=== PATIENT | male | born 1940 | race Caucasian/White ===

== ENCOUNTER 2016-11-20 08:03 | Outpatient (CLI) | payer MEDICARE, BC ==
[~2016-11-20] VITALS: Ht 180.3 cm; Wt 81.8 kg
--- NOTE | ~2016-11-20 | HEMODYNAMI ---
PATIENT:OLIVER BOSTON MEDICAL RECORD: [id number] : 36 LOCATION:[facility] ADMISSION DATE: 11/20/16 Generatedon:11/20/201611:34 Patient name: OLIVER BOSTON Patient #: [id number] SSN: : 1940 Date of study: 11/20/2016 Page: Of Hemodynamic Procedure Report Patient Data Patient Demographics Procedure consent was obtained First Name: OLIVER Gender: Male Last Name: DARVIN : 1940 Middle Initial: D Age: 76 year(s) Patient #: [id number] Race: Additional ID: [id number] Contact details Address: [address] [place] [address] State: [place] City: [place] Zip code: [address] Past Medical History Performed procedures and imaging results Date Procedure Procedure Results Comments 11/13/2016 Stress testing Positive->Intermediate inferior with SPECT MPI risk Allergies Allergen Reaction Date Comments Reported Other allergy 11/20/2016 Plavix, Effient. Admission Admission Data Admission Date: 11/20/2016 Admission Time: 8:03 Height (in.): 71 BSA: 2.02 (m2) Height (cm.): 180.34 BMI: 25.15 (kg/m2) Weight (lbs.): 180.36 Weight (kg.): 81.81 Lab Results Lab Result Date: 11/20/2016 Lab Result Time: 9:23 Biochemistry Name Units Result Min Max BUN mg/dl 18 --(---*)-- 7 18 Creatinine mg/dl 1.1 --(--*-)-- 0.6 1.3 CBC Name Units Result Min Max Hematocrit % 42.8 --(*---)-- 42 54 Hemoglobin g/dl 14.4 --(*---)-- 13.5 17.5 Procedure Procedure Types Cath Procedure Diagnostic Procedure LHC LHC w/Coronaries PCI Procedure PTCA Initial Miscellaneous Procedures Moderate Sedation up to 30 minutes Procedure Description Procedure Date Procedure Date: 11/20/2016 Procedure Start Time: 11:16 Procedure End Time: 11:31 Procedure Staff Name Function Donell Davila MD Performing Physician Kirstie Hoyos RT Scrub Javier Davies RN Nurse Alexis Burton RT Monitor Procedure Data Cath Procedure Fluoroscopy Diagnostic fluoroscopy Total fluoroscopy Time: 4.8 time: 4.8 min min Diagnostic fluoroscopy Total fluoroscopy dose: dose: 354.18 mGy 354.18 mGy Contrast Material Contrast Material Type Amount (ml) Isovue 300 92 Entry Location Entry Primary Successful Side Size Upsize Upsize Entry Closure Succes sful Closure Location (Fr) 1 (Fr) 2 (Fr) Remarks Device Remarks Femoral Right 5 Fr 6 Fr Exoseal artery Short Estimated blood loss: 10 ml Diagnostic catheters Device Type Used For End Catheter Placement Cordis 5Fr Pigtail Procedure Catheter (MP) Cordis 5Fr JL 4.0 Procedure Catheter (MP) Cordis 5Fr 3DRC Catheter Procedure (MP) Procedure Complications No complications Procedure Medications Medication Administration Route Dosage Oxygen NC 2 l/min Heparin Flush Bag added to field 2 bags (1000units/500ml NS) 0.9% NaCl I.V. 100 ml/hr Fentanyl I.V. 50 mcg Versed 1 mg Fentanyl I.V. 50 mcg Versed 1 mg Fentanyl I.V. 50 mcg Fentanyl I.V. 50 mcg Heparin Bolus I.V. 4000 units Integrilin (Bolus I.V. 7.3 ml 2mg/ml) Brilinta P.O. 180 mg Hemodynamics Rest BSA: 2.02 (m2) HGB: 14.4 (g/dl) O2 Consumption: Estimated: 244.75 (ml/min) O2 Co nsumption indexed: Estimated:121.16 (ml/min/m) Heart Rate: 88 (bpm) Snapshots Pre Cath Intra NCS Post Cath Vital Signs Time Heart Resp SPO2 NIBP (mmHg) Rhythm Pain Sedation Rate (ipm) (%) Status Level (bpm) 10:58:42 82 19 99 186/95(131) NSR 0 (11) 10(A) , No pain 11:03:12 74 17 100 173/85(137) NSR 0 (11) 10(A) , No pain 11:07:29 69 19 100 151/79(115) NSR 0 (11) 10(A) , No pain 11:11:53 70 18 99 141/79(102) NSR 0 (11) 9(A) , No pain 11:16:13 73 19 98 137/71(101) NSR 0 (11) 9(A) , No pain 11:20:33 64 17 97 141/65(102) NSR 0 (11) 9(A) , No pain 11:24:51 73 17 98 136/64(103) NSR 0 (11) 9(A) , No pain 11:29:07 71 17 99 140/77(115) NSR 0 (11) 9(A) , No pain 11:32:40 65 17 99 156/83(122) NSR 0 (11) 9(A) , No pain Medications Time Medication Route Dose Verified Delivered Reason Notes Effectiveness by by 11:01:47 Oxygen NC 2 Javier Javier Per physician l/min Samson Davies RN RN 11:01:56 Heparin Flush added 2 Javier Javier used for Bag to bags Samson Davies RN procedure (1000units/500ml field RN NS) 11:02:11 0.9% NaCl I.V. 100 Javier Javier Per physician ml/hr Samson Davies RN RN 11:07:47 Fentanyl I.V. 50 Javier Javier for sedation mcg Samson Davies RN RN 11:08:09 Versed 1 mg Javier Javier for sedation Samson Davies RN RN 11:12:11 Fentanyl I.V. 50 Javier Javier for sedation mcg Samson Davies RN RN 11:12:17 Versed 1 mg Javier Javier for sedation Samson Davies RN RN 11:16:15 Fentanyl I.V. 50 Javier Javier for sedation mcg Samson Davies RN RN 11:21:52 Fentanyl I.V. 50 Javier Javier for sedation mcg Samson Davies RN RN 11:22:01 Heparin Bolus I.V. 4000 Javier Javier for units Samson Davies RN anticoagulation RN 11:23:26 Integrilin I.V. 7.3 Javier Javier for wasted (Bolus 2mg/ml) ml Samson Davies RN antiplatelet 2.7mL of RN therapy integrilin bolus 11:30:59 Brilinta P.O. 180 Javier Javier for mg Samson Davies RN antiplatelet RN therapy Procedure Log Time Note 10:39:51 Diagnostic Cath Status : Elective 10:40:08 Javier Davies RN sent for patient. Start room use. 10:41:49 Time tracking: Regular hours 10:41:53 Plan of Care:Hemodynamics will remain stable., Cardiac rhythm will remain stable., Comfort level will be maintained., Respiratory function will remain adequate., Patient/ family verbilizes understanding of procedure., Procedure tolerated without complication., Recovers from procedure without complications.. 10:52:37 Patient received from Pre/Post Procedure Room to CCL 3 Alert and oriented. Tansferred to table in Supine position. 10:52:38 Warm blankets applied, and emilia hugger turned on for patient comfort. 10:52:38 Correct patient and procedure confirmed by team. 10:52:40 Signed procedure consent form obtained from patient. 10:52:42 ECG and BP/O2 sat monitors applied to patient. 10:52:56 H&P Date Dictated: 11/04/2016 Within 30 days and on chart., H&P Addendum completed by physician on day of procedure. (MUST COMPLETE FOR ALL OUTPATIENTS). 10:52:58 Pre-procedure instructions explained to patient. 10:52:58 Pre-op teaching completed and patient verbalized understanding. 10:52:59 Family in waiting room. 10:53:01 Patient NPO since Midnight. 10:57:25 Vital chart was started 11:01:47 Oxygen 2 l/min NC was given by Javier Davies RN; Per physician; 11:01:54 Patient allergic to Other allergyPlavix, Effient. 11:01:56 Heparin Flush Bag (1000units/500ml NS) 2 bags added to field was given by Javier Davies RN; used for procedure; 11:01:56 Is the patient allergic to Iodine/contrast media? No. 11:01:57 Is patient on blood thinner?No 11:01:58 Patient diabetic? No. 11:02:01 Previous problem with sedation/anesthesia? No ? 11:02:02 Snore? Yes 11:02:03 Sleep apnea? No 11:02:03 Deviated septum? No 11:02:04 Opens mouth fully? Yes 11:02:05 Sticks out tongue? Yes 11:02:09 Airway obstruction? Yes Asthma 11:02:11 0.9% NaCl 100 ml/hr I.V. was given by Javier Davies RN; Per physician; 11:02:12 Dentures? Yes In tight 11:02:16 Pre procedure: right dorsailis pedis pulse 2+ Normal; easily identifiable; not easily obliterated 11:02:18 Patient pain scale 0/10 ?. 11:02:29 IV patent on arrival in left antecubital with 0.9% NaCl at [facility]. 11:03:54 Lab Result : Creatinine 1.1 mg/dl 11::54 Lab Result : BUN 18 mg/dl 11::54 Lab Result : Hemoglobin 14.4 g/dl 11::54 Lab Result : Hematocrit 42.8 % 11::56 Lab results completed and on chart. 11:03:59 Right groin area was prepped with chlora-prep and draped in sterile fashion 11:04:00 Alarms reviewed by R. N. 11:04:00 Sharps counted by scrub and verified by R.N. 11:04:03 Use device set Femoral Dx 11:04:04 Tegaderm 4 x 4 opened to sterile field. 11:04:08 Acist Manifold opened to sterile field. 11:04:11 Acist Hand Control opened to sterile field. 11:04:11 Diagnostic Infinity 5Fr Multipack catheter opened to sterile field. 11:04:12 Acist Syringe opened to sterile field. 11:04:13 Bag Decanter opened to sterile field. 11:04:13 Medline Cath Pack opened to sterile field. 11:04:14 Terumo 5Fr Dresher Sheath opened to sterile field. 11:04:15 St Titus 260cm J .035 wire opened to sterile field. 11:07:15 Baseline sample Acquired. 11:07:23 Rhythm: sinus rhythm 11:07:24 Full Disclosure recording started 11::28 Physician arrived 11::28 --------ALL STOP TIME OUT------ ::28 Final Timeout: patient, procedure, and site verified with staff and physician. All members of the team are in agreement. 11:07:30 Right groin site verified by team. 11:07:32 Physical assessment completed. ASA score P 2 - A patient with mild systemic disease as per Donell Davila MD. 11:07:35 Sedation plan: IV Moderate Sedation Versed, Fentanyl 11:07:47 Fentanyl 50 mcg I.V. was given by Javier Davies RN; for sedation; 11:08:09 Versed 1 mg was given by Javier Davies RN; for sedation; 11::07 Patient Height : 180.34 inches 11:09:13 Patient Weight : 81.81 lbs 11:11:39 Zero performed for pressure channel P1 11:12:11 Fentanyl 50 mcg I.V. was given by Javier Davies RN; for sedation; 11:12:17 Versed 1 mg was given by Javier Davies RN; for sedation; 11:12:33 Zero performed for pressure channel P1 11:15:58 Procedure started. 11:16:02 Local anesthetic to right femoral artery with Lidocaine 2% by Donell Davila MD.INITIAL ACCESS ONLY 11:16:10 A 5 Fr sheath was inserted into the Right Femoral artery 11:16:15 Fentanyl 50 mcg I.V. was given by Javier Davies RN; for sedation; 11:16:43 A Cordis 5Fr Pigtail Catheter (MP) was advanced over the wire and used for Procedure. 11:17:26 LV gram done using SAUCEDA 11:17:41 EF : 50 % 11:18:20 Catheter removed. 11:18:23 A Cordis 5Fr JL 4.0 Catheter (MP) was advanced over the wire and used for Procedure. 11:18:24 LCA angiography performed. 11:19:28 Terumo 6Fr Dresher Sheath opened to sterile field. 11:19:29 Martinez Whisper J 300cm 0.014 guide wire opened to sterile field. 11:19:29 Curexo Technology BasixCompak Inflation Kit opened to sterile field. 11:19:54 Catheter removed. 11:19:57 A Cordis 5Fr 3DRC Catheter (MP) was advanced over the wire and used for Procedure. 11:20:44 RCA angiography performed. 11:20:45 Catheter removed. 11:20:54 Sheath upsized to a 6 Fr Short. 11:21:51 Cordis 6FR XBLAD 3.5 guide catheter opened to sterile field. 11:21:52 Fentanyl 50 mcg I.V. was given by Javier Davies RN; for sedation; 11:22:01 Heparin Bolus 4000 units I.V. was given by Javier Davies RN; for anticoagulation; 11:22:02 6 Fr xblad 3.5 guide catheter was inserted over the wire 11:22:06 whisper wire advanced. 11::08 Wire advanced across lesion. 11:23:26 Integrilin (Bolus 2mg/ml) 7.3 ml I.V. was given by Javier Davies RN; for antiplatelet therapy; wasted 2.7mL of integrilin bolus 11:23:38 ACC PCI Site: mLAD has 75% stenosis. 11:23:40 ACC Pre-intervention CARROLL Flow is 3. 11:24:20 [place] Geron Luge Straight 300cm 0.014 guide wire opened to sterile field. 11:24:30 luge wire advanced. 11:25:18 luge wire used as a kareem wire. 11:25:36 Wire advanced across lesion. 11:26:08 Inflation number: 1 A NC Euphora 3.0 x 15 balloon was prepped and advanced across the Mid LAD, then inflated to 21 NEVAEH for 0:10 (min:sec). 11:26:20 Inflation number: 2 The NC Euphora 3.0 x 15 balloon was reinflated across the Mid LAD, to 21 NEVAEH for 0:10 (min:sec). 11:26:42 Inflation number: 3 The NC Euphora 3.0 x 15 balloon was reinflated across the Mid LAD, to 17 NEVAEH for 0:10 (min:sec). 11:27:48 ACC Post-intervention CARROLL Flow is 3. 11:27:56 Balloon removed over the wire. 11:27:56 Wire removed. 11:27:56 Wire removed. 11:28:04 Guide catheter removed. 11:28:20 Cordis 6Fr Exoseal opened to sterile field. 11:29:45 Sheath removed intact; hemostasis achieved with Exoseal to the Right Femoral artery. 11:29:48 Procedure ended.(Physican Out) 11:30:17 Fluoroscopy time 04.80 minutes. 11:30:26 Flurop Dose total: 354.18 11:30:26 Fluoroscopy dose: 354.18 mGy 11:30:30 Contrast amount:Isovue 300 92ml. 11:30:31 Sharps counted by scrub and verified by R.N. 11:30:33 Insertion/operative site no bleeding no hematoma. 11:30:36 Post-op/insertion site Right Femoral artery dressed using a 4 x 4 and Tegaderm. 11:30:39 Post right femoral artery:stable, soft, clean and dry 11:30:41 Post Procedure Pulses reassessed and unchanged 11::44 Post-procedure physical assessment completed. ASA score P 2 - A patient with mild systemic disease as per Donell Davila MD. 11:30:46 Post procedure rhythm: unchanged. 11:30:49 Estimated blood loss: 10 ml 11:30:50 Post procedure instruction explained to patient.Patient verbalizes understanding. 11:30:51 Patient needs reinforcement of post procedure teaching. 11:30:59 Brilinta 180 mg P.O. was given by Javier Davies RN; for antiplatelet therapy; 11::08 Procedure type changed to Cath procedure, Diagnostic procedure, LHC, LHC w/Coronaries, PCI procedure, PTCA Initial, Miscellaneous Procedures, Moderate Sedation up to 30 minutes 11::40 Procedure and supply charges have been captured, reviewed, submitted and are correct. 11::44 Procedure Complication : No complications 11::47 Vital chart was stopped 11::47 See physician's report for complete and final results. 11::49 Report given to Pre/Post Procedure Room. 11::51 Patient transfered to Pre/Post Procedure Room with Stretcher. 11:31:53 Procedure ended. 11:31:53 Full Disclosure recording stopped 11:32:01 ACC-PCI Only Patient was given prescriptions, or instructed by Donell Davila MD to start/continue the following medications upon discharge: Brilinta 11:32:20 End room use (Document Last) Intervention Summary Intervention Notes Time ActionType Lesion and Equipment Action# Pressure Duration Attributes Used 11:26:08 Inflate Mid LAD NC 1 21 00:10 balloon Euphora 3.0 x 15 balloon 11:26:20 Reinflate Mid LAD NC 2 21 00:10 balloon Euphora 3.0 x 15 balloon 11:26:42 Reinflate Mid LAD NC 3 17 00:10 balloon Euphora 3.0 x 15 balloon Device Usage Item Name Manufacture Quantity Catalog Hospital Part Current Minima l Lot# / Number Charge Number Stock Stock Serial# Code Tegaderm 4 3M 1 [id number] [id number] 087744 5 x 4 Acist Acist 1 02683 952393 780983 688461 5 Manifold Medical Systems Inc Acist Hand Acist 1 07807 623910 867111 716418 5 Control Medical Systems Inc Diagnostic Cardinal 1 [id number] 409108 98253 195835 30 Infinity Health 5Fr Multipack catheter Acist Acist 1 64843 414068 637163 259385 20 Syringe Medical Systems Inc Bag Microtek 1 2002S 680392 58066 736651 5 Decanter Medical Inc. Medline Cardinal 1 [id number] 080866 03508 222113 5 Cath Pack Health Terumo 5Fr Terumo 1 [id number] 663758 397706 141222 [address] T[address] St Titus 1 198188 549781 965469 251824 30 260cm J .035 wire Cordis 5Fr Cardinal 1 078012 5 Pigtail Health Catheter (MP) Cordis 5Fr Cardinal 1 564470 5 JL 4.0 Health Catheter (MP) Terumo 6Fr Terumo 1 [id number] 233266 209111 206354 40 Dresher Sheath Martinez Martinez 1 [id number] 292567 448770 108261 5 Whisper J Vascular 300cm 0.014 guide wire Merit Merit 1 [id number] 947132 643575 921407 15 [employer]ies[employer]Avang[employer] BV Medical Inflation Kit Cordis 5Fr Cardinal 1 840502 5 3DRC Health Catheter (MP) Cordis 6FR Cardinal 1 [id number] 587837 836241 037626 10 XBLAD 3.5 Health guide catheter [place] Sci [place] 1 [id number] 606888 763588 813527 5 Get In Scientific Straight 300cm 0.014 guide wire CA Euphora Medtronic 1 [id number] 401149 348397 955673 1 [id number] 3.0 x 15 balloon Cordis 6Fr Cardinal 1 EX600 651890 531111 921891 [address] Signature Audit [place] Stage Time Signature Unsigned Intra-Procedure 11/20/2016 Alexis Burton 11:34:22 AM RT(R) Signatures Monitor : Alexis Burton RT Signature : Date : Time : [facility] [address] [place] [address]
[2016-11-20 09:17] VITALS: BP 144/72; Ht 180.3 cm; Wt 81.8 kg
[2016-11-20 09:27] LABS: BASOPHILS 0.4 % (0.0-2.0); EOSINOPHILS 4.2 % (0-7); HEMATOCRIT 42.8 % (42.0-54.0); HEMOGLOBIN 14.4 g/dL (13.5-17.5); IMMATURE GRANULOCYTES 0.2 % (0-5); LYMPHOCYTES 18.7 % (15-50); MCH 30.1 pg (26.0-34.0); MCHC 33.6 g/dL (31.0-37.0); MCV 89.5 fL (80.0-100.0); MEAN PLATELET VOLUME 11.4 fL (7.4-10.4); MONOCYTES 9.8 % (2-11); NEUTROPHILS 66.7 % (40-80); PLATELET COUNT 248 10x3/uL (130-400); RBC 4.78 10x6/uL (4.20-6.10); RDW 13.7 % (11.5-14.5); WBC 8.4 10x3/uL (4.8-10.8)
[2016-11-20] MEDS ORDERED: NORVASC5 MG PO (09:29)
[2016-11-20] MEDS ORDERED: TESSALON PERLE100 MG PO (09:29)
[2016-11-20] MEDS ORDERED: REGLAN10 MG PO (09:30)
[2016-11-20] MEDS ORDERED: PREVACID30 MG PO (09:30)
[2016-11-20] MEDS ORDERED: ATARAX 25 MG TA25 MG PO (09:30)
[2016-11-20] MEDS ORDERED: OXYBUTYNIN15 MG/BOTT PO (09:31)
[2016-11-20] MEDS ORDERED: CYTOTEC200 MCG PO (09:31)
[2016-11-20] MEDS ORDERED: ZOCOR20 MG PO (09:32)
[2016-11-20] MEDS ORDERED: RYTHMOL SR225 MG PO (09:32)
[2016-11-20] MEDS ORDERED: PROAIR HFA8.5 GM INH (09:34)
[2016-11-20] MEDS ORDERED: BAYER CHEWABLE81 MG PO (09:34)
[2016-11-20 09:36] LABS: CALCIUM 9.1 mg/dL (8.5-10.1); CREATININE - SERUM 1.1 mg/dL (0.6-1.3); POTASSIUM - SERUM 4.3 mmol/L (3.5-5.1)
[2016-11-20 09:45] LABS: ANION GAP 12.3 mmol/L (8-16)
[2016-11-20] MEDS ORDERED: BRILINTA90 MG PO (11:42)
--- NOTE | 2016-11-20 12:29 | NUR ---
1200 LYING FLAT, NSR RATE 67. C/O CHEST TIGHTNESS ON ARRIVAL. NOTIFIED TAUTH...STATED IT WOULD FEEL THAT WAY AFTER DILATING LAD. WILL MONITOR CLOSELY FOR WORSENING SYMPTOMS. ROOM AIR W NO DISTRESS. PULSES PALP X 4. R GROIN 6F EXOSEAL C/D/I WITH NO HEMATOMA OR BLEEDING. FAMILY AT BEDSIDE.
--- NOTE | 2016-11-20 14:10 | NUR ---
CONTINUES LYING FLAT. SIPPING SODA WITHOUT NAUSEA. NSR W NO C/O CHEST PAIN. PULSES PALP X 4. R GROIN REMAINS C/D/I WITH NO HEMATOMA OR BLEEDING.
--- NOTE | 2016-11-20 14:49 | NUR ---
PIV REMOVED FROM LEFT ARM WITH BANDAID APPLIED. ASSISTED PT SIDE OF BED TO GET DRESSED.
--- NOTE | 2016-11-20 15:15 | NUR ---
DISCHARGE INSTRUCTIONS GIVEN, PT AND FAMILY VERBALIZED UNDERSTANDING.
--- NOTE | 2016-11-20 15:25 | NUR ---
PT TAKEN OUT VIA WHEELCHAIR BY MEMBER OF CATH CARE TEAM. LEFT FACILITY WITH FAMILY MEMBER AND ALL PERSONAL BELONGINGS.
--- NOTE | 2016-12-02 10:08 | OP ---
PATIENT NAME: OLIVER BOSTON MEDICAL RECORD: [id number] :36 LOCATION:D.CAT ADMISSION DATE: SURGEON: MAURICE COKER MD DATE OF OPERATION: 11/20/2016 PROCEDURES: 1. PTCA, LAD. 2. Left heart catheterization. 3. Selective coronary angiography. 4. Left ventriculogram. INDICATIONS: Angina and coronary artery disease. PROCEDURE IN DETAIL: After informed consent was obtained and after detailed explanation of risks, benefits as well as alternative therapies, the patient elected to proceed with angiogram and angioplasty. The right femoral area was prepped and draped in normal sterile fashion. The right femoral artery was cannulated via modified Seldinger technique with placement of 6-Swazi sheath. All catheters exchanged through this sheath. FINDINGS: The left ventriculogram was performed in standard 30-degree SAUCEDA view, reveals good cardiac wall motion throughout all segments. Overall ejection fraction estimated at 60%. SELECTIVE CORONARY ANGIOGRAPHY: 1. Left main is with no significant angiographic disease. 2. Left anterior descending has previously placed stent with about 75% in-stent restenosis. 3. Left circumflex shows moderate irregularities, but no flow-limiting stenosis. 4. Right coronary is small, nondominant with no significant stenosis. PTCA OF THE PREVIOUSLY PLACED STENT IN THE LAD: The balloon used was 3.0 x 15 mm high-pressure Euphora balloon taken to 21 atmospheres. Result was 0% residual stenosis. OVERALL IMPRESSION: Successful percutaneous transluminal coronary angioplasty high pressure for in-stent restenosis of the left anterior descending stent going from 75% initial stenosis to 0% residual. TRANSINT:[id number] Voice Confirmation ID: [id number] DOCUMENT ID: [id number] MAURICE COKER MD at 1008 CC: [id number] DICTATION DATE: 11/20/16 1136 RADIO ENGINEER: 11/20/16 1654 DEP CLI 11/20/16 [address] [place] [address]
== END 2016-11-20 15:26 | disposition home or self-care (01) ==
LOC: D.CATH 08:03
PROVIDERS: Internal Medicine Interventional Cardiology
DX: I25.119 Atherosclerotic heart disease of native coronary artery with unspecified angina pectoris (principal); T82.855A Stenosis of coronary artery stent, initial encounter

== ENCOUNTER 2017-10-16 17:01 | Emergency (ER) | payer MEDICARE, BC ==
[2016-11-20 09:17] VITALS: BMI 25.1
[~2017-10-16 17:01] MED LIST: ATARAX 25 MG TA25 MG PO; BAYER CHEWABLE81 MG PO; BRILINTA90 MG PO; CYTOTEC200 MCG PO; NORVASC5 MG PO; OXYBUTYNIN15 MG/BOTT PO; PREVACID30 MG PO; PROAIR HFA8.5 GM INH; REGLAN10 MG PO; RYTHMOL SR225 MG PO; TESSALON PERLE100 MG PO; ZOCOR20 MG PO
== END 2017-10-16 20:00 | disposition left against medical advice (07) ==
LOC: D.ER 17:01
DX: M79.602 Pain in left arm (principal); R00.1 Bradycardia, unspecified; I10 Essential (primary) hypertension

== ENCOUNTER 2018-03-14 15:56 | Emergency (ER) | payer MEDICARE, BC ==
[~2018-03-14] VITALS: Ht 180.3 cm; Wt 79.4 kg
[2018-03-14 15:59] VITALS: Ht 180.3 cm; Wt 79.4 kg
[2018-03-14 16:44] LABS: BASOPHILS 0.4 % (0-2); EOSINOPHILS 3.5 % (0-7); HEMATOCRIT 39.6 % (42.0-54.0); HEMOGLOBIN 13.5 g/dL (13.5-17.5); IMMATURE GRANULOCYTES 0.4 % (0-5); LYMPHOCYTES 19.2 % (15-50); MCH 30.3 pg (26.0-34.0); MCHC 34.1 g/dL (31.0-37.0); MCV 88.8 fL (80.0-100.0); MEAN PLATELET VOLUME 10.7 fL (7.4-10.4); MONOCYTES 9.6 % (2-11); NEUTROPHILS 66.9 % (40-80); PLATELET COUNT 270 10x3/uL (130-400); RBC 4.46 10x6/uL (4.20-6.10); RDW 13.9 % (11.5-14.5); WBC 8.2 10x3/uL (4.8-10.8)
[2018-03-14 17:06] LABS: ALBUMIN 3.9 g/dL (3.4-5.0); ALKALINE PHOSPHATASE 54 U/L (46-116); ALT (SGPT) 14 U/L (10-68); BILIRUBIN - TOTAL 0.53 mg/dL (0.2-1.3); CALC OSMOLALITY 268 mosm/kg (275-300); CALCIUM 9.2 mg/dL (8.5-10.1); CHLORIDE - SERUM 97 mmol/L (98-107); CREATININE - SERUM 1.4 mg/dL (0.6-1.3); GLUCOSE 88 mg/dL (74-106); POTASSIUM - SERUM 3.8 mmol/L (3.5-5.1); PROTEIN - SERUM 7.6 g/dL (6.4-8.2); SODIUM 134 mmol/L (136-145); UREA NITROGEN 17 mg/dL (7-18); eGFR NON AFRICAN AMERICAN 52 mL/min (90-120)
[2018-03-14 17:09] LABS: CREATINE KINASE 35 UL (21-232)
[2018-03-14 17:18] LABS: TROPONIN-I < 0.017 ng/mL (0.000-0.060)
[2018-03-14] MEDS ORDERED: ATIVAN1 MG PO ×2 (18:21→18:22)
[2018-03-14 19:06] VITALS: BP 172/80
== END 2018-03-14 19:07 | disposition home or self-care (01) ==
LOC: D.ER 15:56
PROVIDERS: Emergency Medicine
DX: F41.9 Anxiety disorder, unspecified (principal); I25.10 Atherosclerotic heart disease of native coronary artery without angina pectoris